=== PATIENT | male | born 1970 | race Caucasian/White ===

== ENCOUNTER → 2019-04-21 09:26 | Outpatient (CLI) | payer SELFPAY ==
--- NOTE | 2019-04-21 10:00 | MRI_ITS ---
STUDY: MRI THORACIC SPINE WITHOUT CONTRAST REASON FOR EXAM: Male, 49 years old. Back pain, injury 4 years ago TECHNIQUE: Standardized fat and water weighted pulse sequences were obtained in the sagittal and axial planes. COMPARISON: None. FINDINGS: Thoracic spine is intact and aligned with normal marrow and paraspinal soft tissues. There are expected age-appropriate degenerative changes in the endplates and discs. Canal is patent throughout. Spinal cord is normal in size, shape and signal and terminates at the appropriate level. There are partially visualized degenerative changes in the lower cervical spine at C6-C7. Refer to dedicated examination. MRI/Spine Thoracic (Routine) IMPRESSION: Unremarkable age-appropriate thoracic spine. Normal cord, no neural compression. Electronically Signed: Peewee Wilburn, at 16:44 EDT Tel , Service support ,
== END ==
DX: M99.02 Segmental and somatic dysfunction of thoracic region (principal)
CPT/HCPCS: 72146